=== PATIENT | male | born 2000 | race Caucasian/White ===

== ENCOUNTER 2025-04-25 22:23 | Emergency (ER) | payer OTHER ==
[~2025-04-25] VITALS: Ht 170.2 cm; Wt 91.0 kg
[2025-04-25 22:47] VITALS: O2SAT 97
[2025-04-26] MEDS ORDERED: IBUP-2029 MT (01:33)
[2025-04-26 01:52] VITALS: BP 139/65; PULSE 65; RESP 12; TEMP 37; O2SAT 98
== END 2025-04-26 01:57 | disposition home or self-care (01) ==
LOC: ER 22:23
DX: S80.01XA Contusion of right knee, initial encounter (principal); Z79.899 Other long term (current) drug therapy; X58.XXXA Exposure to other specified factors, initial encounter; Y93.89 Activity, other specified; Y92.89 Other specified places as the place of occurrence of the external cause; Y99.8 Other external cause status
CPT/HCPCS: 73562; 99283; Z7610; L1830; 29105